=== PATIENT | male | born 1985 | race Caucasian/White ===

== ENCOUNTER 2023-11-23 12:43 | Emergency (ER) | payer OTHER, SELFPAY ==
[2023-11-23 12:48] VITALS: BP 142/81; PULSE 87; O2SAT 99
[2023-11-23 12:51] VITALS: BP 142/81; PULSE 94; RESP 16; TEMP 36.7; O2SAT 99; BMI 31.3
--- NOTE | 2023-11-23 13:07 | ED.GENADULT ---
HPI - General Adult General Chief complaint: Abdominal Pain Stated complaint: Abd pain/Black stool Time Seen by Provider: 11/23/23 12:53 Source: patient Mode of arrival: Ambulatory History of Present Illness HPI narrative: Patient is a 38-year-old male who is here for evaluation of a couple days of diarrhea with dark-colored stools and mild right-sided abdominal pain. States his symptoms started after he ate some barbecue that was very spicy. No history of GI bleeds. No urinary symptoms. Not on blood thinners. No prior abdominal surgeries. Has not tried anything for symptoms prior to arrival Related Data Allergies Allergy/AdvReac Type Severity Reaction Status Date / Time No Known Drug Allergies Allergy Verified 11/23/23 12:52 Review of Systems Review of Systems Narrative: See HPI Patient History Social History Smoking Status: Never smoker Smoking Status: Never smoker Substance Use Type: does not use Exam Initial Vital Signs Initial Vital Signs: Vital Signs Temperature 98.0 F 11/23/23 12:51 Pulse Rate 94 H 11/23/23 12:51 Respiratory Rate 16 11/23/23 12:51 Blood Pressure 142/81 H 11/23/23 12:51 Pulse Oximetry 99 11/23/23 12:51 Oxygen Delivery Method Room Air 11/23/23 12:51 Const General: cooperative and comfortable HENMT Head: normal to inspection and normocephalic Resp Effort & Inspection: normal respiratory effort Cardio Rate: regular rate GI Inspection: normal to inspection and non-distended Palpation: soft and No tender Neuro General: patient alert and patient awake Course Orders Ordered: ED Orders 11/23/23 12:53 Complete Blood Count AUTO DIFF Stat 11/23/23 12:54 Basic Metabolic Panel Stat Vital Signs Vital signs: Vital Signs - 8 hr 11/23/23 12:51 Temperature 98.0 F Pulse Rate 94 H Respiratory Rate 16 Blood Pressure 142/81 H Pulse Oximetry 99 Oxygen Delivery Method Room Air Medical Decision Making Lab Data Lab results reviewed: Yes I reviewed the patient's lab results. 11/23/23 13:05 11/23/23 13:05 Labs: Lab Results 11/23/23 Range/Units 13:05 WBC 6.4 (4.5-11.0) X10^3/uL RBC 5.83 (4.5-5.9) X10^6/uL Hgb 17.2 (13.5-17.5) g/dL Hct 51.4 (41-53) % MCV 88.0 (80-100) fL MCH 29.4 (26-34) PG MCHC 33.4 (30-36) % RDW 13.4 (11.6-14.8) % Plt Count 296 (150-400) X10^3/uL Neut % (Auto) 65.4 (50-75) % Lymph % (Auto) 23.2 L (25-40) % Williams % (Auto) 10.2 (3-14) % Eos % (Auto) 0.7 L (2-4) % Baso % (Auto) 0.5 (0-2) % Neut # (Auto) 4200 (0911-0873) /uL Lymph # (Auto) 1500 (8446-6895) /uL Williams # (Auto) 700 (0-900) /uL Eos # (Auto) 0 (0-450) /uL Baso # (Auto) 0 (0-100) /uL Sodium 138 (137-145) mmol/L Potassium 4.6 (3.4-5.1) mmol/L Chloride 105 (98-107) mmol/L Carbon Dioxide 29 (22-32) mmol/L BUN 13 (9-20) mg/dL Creatinine 1.12 (0.66-1.25) mg/dL Estimated GFR > 60 (>60) mL/min BUN/Creatinine Ratio 11.6 (6-22) Glucose 104 H (70-100) mg/dL Calcium 9.2 (8.4-10.2) mg/dL MDM Narrative Medical decision making narrative: Benign exam. Labs unremarkable. Vital signs unremarkable. No indication for radiologic studies. Discussed the findings with the patient. Advised that he talk with his primary doctor about a referral to have a colonoscopy. Will start him on a proton pump inhibitor. He was given return precautions and follow-up instructions. He expressed understanding and agreement. Discharge Plan Departure Patient Disposition: Home Clinical Impression: Complaint of melena Activity Restrictions/Additional Instructions: I do recommend that you talk with your primary doctor about a referral to have a colonoscopy. Also recommend that you start on a class of medicine caught a proton pump inhibitor. Examples of these include Nexium/Prilosec/omeprazole/esomeprazole. Return to the emergency department for new or worsening symptoms. Stand Alone Forms: Patient Portal/API
[2023-11-23 13:16] LABS: Add Manual Diff / Slide Review NO; Basophils Absolute Auto 0 /uL (0-100); Basophils Percent Auto 0.5 % (0-2); Eosinophils Absolute Auto 0 /uL (0-450); Eosinophils Percent Auto 0.7 % (2-4); Hematocrit 51.4 % (41-53); Hemoglobin 17.2 g/dL (13.5-17.5); Lymphocytes Absolute Auto 1500 /uL (1100-4500); Lymphocytes Percent Auto 23.2 % (25-40); Mean Corpuscular HGB Conc 33.4 % (30-36); Mean Corpuscular Hemoglobin 29.4 PG (26-34); Monocytes Absolute Auto 700 /uL (0-900); Monocytes Percent Auto 10.2 % (3-14); Neutrophils Absolute Auto 4200 /uL (1500-7000); Neutrophils Percent Auto 65.4 % (50-75); Platelet Count 296 X10^3/uL (150-400); Red Blood Cell Count 5.83 X10^6/uL (4.5-5.9); Red Cell Distribution Width 13.4 % (11.6-14.8); White Blood Cell Count 6.4 X10^3/uL (4.5-11.0)
[2023-11-23 13:25] LABS: BUN Creatinine Ratio 11.6 (6-22); Blood Urea Nitrogen 13 mg/dL (9-20); Calcium 9.2 mg/dL (8.4-10.2); Carbon Dioxide 29 mmol/L (22-32); Chloride 105 mmol/L (98-107); Estimated Glomerular Filt Rate > 60 mL/min (>60); Glucose 104 mg/dL (70-100); HEMOLYSIS 20 (0-50); Potassium 4.6 mmol/L (3.4-5.1); Sodium 138 mmol/L (137-145)
[2023-11-23 13:30] VITALS: BP 118/75
== END 2023-11-23 13:43 | disposition home or self-care (01) ==
PROVIDERS: Emergency Provider Emergency Medicine
DX: Z71.1 Person with feared health complaint in whom no diagnosis is made (principal)
CPT/HCPCS: 36415; 80048; 85025; 99282; 99283